=== PATIENT | male | born 1960 | race African-American/Black ===

== ENCOUNTER 2020-03-08 06:43 | Emergency (ER) | payer OTHER ==
[2020-03-08 06:54] VITALS: BP 167/88; PULSE 51; TEMP 98.4; BMI 40.4
[2020-03-08] MEDS ORDERED: ACETAMINOPHEN 1000 MG/100 ML VIAL (NON FORMULARY) IVPB ONE (07:37)
[2020-03-08] MEDS ORDERED: LACTATED RINGERS SOLUTION 1000 ML INFUS.BAG IV ONE (07:37)
[2020-03-08] MEDS ORDERED: FAMOTIDINE 20 MG/50 ML IVPB 20 MG in PREMIX 50 IVPB ONE (07:39)
[2020-03-08] MEDS ORDERED: FAMOTIDINE 20 MG/50 ML IVPB 20 MG/50 ML MG IVPB ONE (08:10)
[2020-03-08] MEDS ORDERED: ACETAMINOPHEN INJECTION 100 ML IVPB ONE (08:10)
[2020-03-08 08:46] LABS: BASO % 0.4 % (0-2.0); EOS % 0.1 % (0-4.5); HEMATOCRIT 39.9 % (35.4-49); HEMOGLOBIN 13.6 GM/dL (11.7-16.9); LYMPH % 8.7 % (8-40); MCHC 34.1 g/dl (32.0-35.9); MEAN CELL VOLUME 84.8 fl (80-96); MEAN PLT VOLUME 7.6 fl (7.5-11.1); MONO % 11.1 % (3.8-10.2); NEUT % 79.7 % (42.8-82.8); PLATELET COUNT 317 K/MM3 (134-434); RBC 4.71 M/mm3 (4.00-5.60); RDW 13.9 % (11.9-15.9); WHITE BLOOD COUNT 12.7 K/mm3 (4.0-10.0)
[2020-03-08 09:03] LABS: POTASSIUM 4.5 mmol/L (3.5-5.1)
[2020-03-08 09:06] LABS: ALBUMIN 4.2 g/dl (3.4-5.0); CALCIUM 8.7 mg/dL (8.5-10.1)
[2020-03-08 09:07] LABS: BLOOD UREA NITROGEN 12.4 mg/dL (7-18)
[2020-03-08 09:09] LABS: CREATININE 0.9 mg/dL (0.55-1.3)
[2020-03-08 09:10] LABS: BILIRUBIN,TOTAL 0.7 mg/dL (0.2-1); TOT PROT 7.6 g/dl (6.4-8.2)
== END 2020-03-08 09:48 | disposition home or self-care (01) ==
LOC: JER 06:43
PROC: 3E033NZ Introduction of Analgesics, Hypnotics, Sedatives into Peripheral Vein, Percutaneous Approach (ICD-10-PCS; principal; 2020-03-08)
PROC: 3E033GC Introduction of Other Therapeutic Substance into Peripheral Vein, Percutaneous Approach (ICD-10-PCS; 2020-03-08)
DX: R10.9 Unspecified abdominal pain (principal)
CPT/HCPCS: 36415; 80053; 82272; 83605; 83690; 85025; 93005; 93010; 96365; 96375; 99285-25; J0131

== ENCOUNTER 2020-03-09 06:29 | Emergency (ER) | payer OTHER ==
[2020-03-09 06:43] VITALS: BP 156/69; PULSE 61; TEMP 97.9; BMI 35.9
== END 2020-03-09 07:58 | disposition home or self-care (01) ==
LOC: JER 06:29
DX: K59.00 Constipation, unspecified (principal)
CPT/HCPCS: 99281-25